=== PATIENT | male | born 1960 | race Caucasian/White ===

== ENCOUNTER 2017-05-11 07:44 | Day surgery (SDC) | payer MEDICARE ==
[~2017-05-11 07:44] MED LIST: BESIFLOXACIN HCL 0.6% OPH SUSP 5 ML BOTTLE ONE; BUPIVACAINE HCL 0.75% INJ/PF (7.5 MG/1 ML) 10 ML SDV OS PRN; CHONDR SU A NA/HYALUR INTRAOC KIT (SURGICARE) ONE; EPINEPHRINE INJ/PF 1 MG/1 ML AMPULE ONE; FENTANYL CITRATE INJ/PF 100 MCG/2 ML AMPUL ONE; KETOROLAC TROMETHAMINE 0.45% 4 DROP/0.4 ML DROPERETTE ONE; KETOROLAC TROMETHAMINE 0.45% 4 DROP/0.4 ML DROPERETTE OS PRN; LIDOCAINE 4% INJ/PF (40 MG/ML) 5 ML AMPUL OS PRN; MIDAZOLAM 2 MG/2 ML INJ ONE; TETRACAINE HCL 0.5% OPH SOLN 0.6 ML DROPERETTE ONE
[2017-05-11] MEDS: CYCLOPENTOLATE 0.2%/PHENYLEPHRINE 1% OPH SOLN 2 ML OS PRN ×3 (08:13→08:33)
[2017-05-11] MEDS: BESIFLOXACIN HCL 0.6% OPH SUSP 5 ML BOTTLE OS PRN ×4 (08:13→09:15)
[2017-05-11] MEDS: TROPICAMIDE 1% OPH SOLN 3 ML OS PRN ×3 (08:13→08:33)
[2017-05-11] MEDS: TETRACAINE HCL 0.5% OPH SOLN 0.6 ML DROPERETTE OS PRN ×2 (08:14→08:33)
[2017-05-11] MEDS ORDERED: EPINEPHRINE INJ/PF 1 MG/1 ML AMPULE ONE (08:37)
[2017-05-11] MEDS ORDERED: FENTANYL CITRATE INJ/PF 100 MCG/2 ML AMPUL ONE (08:49)
[2017-05-11] MEDS ORDERED: MIDAZOLAM 2 MG/2 ML INJ ONE ×2 (08:49→09:22)
[2017-05-11] MEDS ORDERED: CYCLOPENTOLATE 0.2%/PHENYLEPHRINE 1% OPH SOLN 2 ML OS PRN (09:00)
[2017-05-11] MEDS ORDERED: LIDOCAINE 4% INJ/PF (40 MG/ML) 5 ML AMPUL OS PRN (09:00)
[2017-05-11] MEDS ORDERED: TROPICAMIDE 1% OPH SOLN 3 ML OS PRN (09:00)
[2017-05-11] MEDS ORDERED: BUPIVACAINE HCL 0.75% INJ/PF (7.5 MG/1 ML) 10 ML SDV OS PRN (09:00)
--- NOTE | 2017-05-11 09:57 | [facility] DISCHARGE SUMMARY E ---
[facility] Discharge Summary NAME: ETHAN HOFF AGE: 56Y ADMITTED: 05/11/2017 DISCHARGED: 05/11/2017 PREOPERATIVE DIAGNOSIS: Cataract, left eye. POSTOPERATIVE DIAGNOSIS: Cataract, left eye. HOSPITAL COURSE: The patient is a 56-year-old gentleman who underwent uneventful cataract extraction with intraocular lens implant, left eye, on 05/11/2017. He will be discharged to home. He was instructed to resume preoperative medications, take Tylenol as needed for discomfort, to keep his eye shielded, to use Besivance, Durezol, and Ilevro at 3 p.m. and 8 p.m., and to followup in my office in 1 day. DICTATING PHYSICIAN: ARLETH MURRELL M.D. [id number] PHY#: [id number] ID: [id number] JOB#: [id number] ACCT: [id number] cc:ARLETH MURRELL M.D. >
--- NOTE | 2017-05-11 09:58 | [facility] OPERATIVE REPORT E ---
[facility] Operative Report NAME: ETHAN HOFF AGE: 56Y DATE OF SURGERY: 05/11/2017 ROOM: PREOPERATIVE DIAGNOSIS: Cataract, left eye. POSTOPERATIVE DIAGNOSIS: Cataract, left eye. PROCEDURE PERFORMED: Phacoemulsification with posterior chamber intraocular lens, left eye. SURGEON: Shana Murrell MD ANESTHESIA: Topical with MAC. INDICATIONS FOR SURGERY: Difficulty reading small print and road signs. Best corrected visual acuity 20/50. PROCEDURE: The patient was brought to the operating room and placed on the operative table. Following tetracaine drops, topical anesthesia was administered. This consisted of instrument wipe pledgets soaked in a solution of 4% Xylocaine mixed with 0.75% Marcaine in a 1:2 ratio. A 2 x 1 cm pledget was placed in the superior fornix. A 1 x 1 cm pledget was placed in the inferior fornix. The eye was patched shut for 5 minutes. The patch was removed. The eye was sterilely prepped and draped in the usual manner. Lid speculum was placed in the eye. The pledgets were removed. 4-0 black silk sutures were placed around the superior and the inferior rectus muscles to be used as traction. A conjunctival peritomy was made at the 10 o'clock position. Hemostasis was obtained with bipolar cautery. A posterior limbal groove was created using a crescent knife and dissected anteriorly towards the cornea. A sharp point blade was used to create a paracentesis site at the 2 o'clock position. A 2.4 mm keratome was used to enter the anterior chamber through the groove. Viscoelastic was injected into the anterior chamber. An anterior capsulotomy was performed using Utrata forceps in a capsulorrhexis fashion. Hydrodissection and hydrodelineation were performed. Phacoemulsification was performed in haiwbu-ret-pyptxin technique. Total phaco time 7.6 CDE. Following this, the I/A unit was used to remove residual cortex. Viscoelastic was injected into the capsular bag. Intraocular lens model SN60WF, 19.5 diopters, serial number [id number] was placed in the capsular bag. The I/A unit was used to remove residual viscoelastic. The wound was seen to be watertight under high and low pressure, and no sutures were placed. The intraocular lens was well centered. The pressure was adjusted in the eye to normal pressure. The 4-0 black silk sutures and lid speculum were removed. The eye was shielded after Besivance drops were placed. The patient tolerated the procedure well and was sent to the recovery room in good condition. DICTATING PHYSICIAN: SHANA MURRELL M.D. [id number] PHY#: [id number] ID: [id number] JOB#: [id number] ACCT: [id number] cc:SHANA MURRELL M.D. >
== END 2017-05-11 09:53 | disposition home or self-care (01) ==
LOC: SC 07:44
PROVIDERS: ATTEND Ophthalmology
PROC: 08RK3JZ Replacement of Left Lens with Synthetic Substitute, Percutaneous Approach (ICD-10-PCS; principal; 2017-05-11 09:00)
DX: H25.812 Combined forms of age-related cataract, left eye (principal); K74.60 Unspecified cirrhosis of liver; F17.210 Nicotine dependence, cigarettes, uncomplicated
CPT/HCPCS: 66984; V2632; J2250; J3490; A9270 ×2; J0171; J3010; 142

== ENCOUNTER → 2018-03-25 | Outpatient (CLI) | payer MEDICARE ==
--- NOTE | 2018-03-25 09:24 | RADIOLOGY REPORT (SQ) ---
EXAM DESCRIPTION: U/S ABDOMEN LIMITED W/O DOP COMPLETED DATE/TIME: 03/25/2018 8:41 am REASON FOR STUDY: K74.60 UNSPECIFIED CIRRHOSIS OF LIVER K74.60 UNSPECIFIED CIRRHOSIS OF LIVER Z87.8 91 PERSONAL HISTORY OF NICOTINE DEPENDENCE COMPARISON: None. TECHNIQUE: Dynamic and static grayscale images acquired of the abdomen and recorded on PACS. Additio nal selected color Doppler and spectral images recorded. LIMITATIONS: Study is limited somewhat due to overlying bowel gas. FINDINGS: PANCREAS: No masses. No peripancreatic edema or fluid collections. LIVER: Echotexture is coarse with increased echogenicity consistent with fatty infiltration. LIVER VASCULATURE: Normal directional flow of the main portal vein. GALLBLADDER: No stones. Normal wall thickness. No pericholecystic fluid. ULTRASOUND-DETECTED SANDHU'S SIGN: Negative. INTRAHEPATIC DUCTS AND COMMON DUCT: CBD and intrahepatic ducts normal caliber. No filling defects. INFERIOR VENA CAVA: Normal flow. AORTA: No aneurysm. RIGHT KIDNEY: 11.3 cm in length. Normal echogenicity. No solid or suspicious masses. No hydron ephrosis. No calcifications. PERITONEAL AND RIGHT PLEURAL SPACE: No ascites or effusions. OTHER: No other significant finding. IMPRESSION: FATTY INFILTRATION OF THE LIVER. OTHERWISE NORMAL RIGHT UPPER QUADRANT ULTRASOUND. TECHNICAL DOCUMENTATION: JOB ID: [id number] [employer]- All Rights Reserved Reading location - IP/workstation name: [email or web address]
--- NOTE | 2018-03-25 09:30 | RADIOLOGY REPORT (SQ) ---
EXAM DESCRIPTION: CT LUNG CANCER SCREENING COMPLETED DATE/TIME: 03/25/2018 8:45 am REASON FOR STUDY: Z87.891 PERSONAL HISTORY OF NICOTINE DEPENDENCE K74.60 UNSPECIFIED CIRRHOSIS OF Randy SCOTT Z87.891 PERSONAL HISTORY OF NICOTINE DEPENDENCE Has the patient had a Chest CT scan within the past year? Was the patient offered tobacco cessation counseling? Was the patient engaged in shared decision making for this test? Does the patient have signs or symptoms of Lung Cancer? Is the patient a smoker? How many packs per year? How many years since quitting smoking? Patients age: COMPARISON: None. TECHNIQUE: Low Dose CT scan performed of the chest without intravenous contrast for purposes of scre ening for lung cancer. Images reviewed with lung, soft tissue and bone windows. Reconstructed coron al and sagittal MPR images reviewed. All images stored on PACS. All CT scanners at this facility use dose modulation, iterative reconstruction, and/or weight based d osing when appropriate to reduce radiation dose to as low as reasonably achievable (ALARA). [facility]: Dose Right [facility]: CareDose [facility]: Dose Right [facility]: Teradose 4D [facility]: Eko [place] RADIATION DOSE: CT Rad equipment meets quality standard of care and radiation dose reduction techniq ues were employed. CTDIvol: 2.1 mGy. DLP: 88 mGy-cm. mGy. LIMITATIONS: No technical limitations. FINDINGS: LUNGS AND PLEURA: No masses or nodules. Calcified granuloma is identified on the right. No pleural effusions or calcifications. No pneumothorax. No scarring or interstitial changes. HILAR AND MEDIASTINAL STRUCTURES: Mediastinal calcifications in right hilar calcifications are identi fied consistent with old granulomatous disease. HEART AND VASCULAR STRUCTURES: No aortic aneurysm. No pericardial effusion. No cardiac devices. CORONARY ARTERY CALCIFICATIONS: Minimal coronary artery calcifications are identified. UPPER ABDOMEN: No significant findings. THYROID AND OTHER SOFT TISSUES: No masses. No adenopathy. BONY STRUCTURES: No significant finding. OTHER: No other significant findings. IMPRESSION: NO SIGNIFICANT FINDING ON NON-CONTRASTED CHEST CT. NO OTHER CLINICALLY SIGNIFICANT/POTENTIALLY CLINICALLY SIGNIFICANT FINDINGS LUNGRADS: LUNGRADS: 1 NEGATIVE. NO NODULES, OR DEFINITELY BENIGN NODULES MODIFIER: NONE RECOMMENDATION: Continue annual screening with LDCT in 12 months. COMMENT: CRITERIA: No lung nodules. Nodules with specific calcifications: Complete, central, popcorn, concentric rings and fat containin g nodules. TECHNICAL DOCUMENTATION: JOB ID: [id number] Quality ID # [id number]: Final reports with documentation of one or more dose reduction techniques (e.g., Au tomated exposure control, adjustment of the mA and/or kV according to patient size, use of iterative reconstruction technique) 2010 [facility] Rad[facility] Reading location - IP/workstation name: [email or web address]
== END ==
LOC: RAD 08:11
PROVIDERS: ATTEND Nurse Practitioner Acute Care
DX: Z12.2 Encounter for screening for malignant neoplasm of respiratory organs (principal); Z87.891 Personal history of nicotine dependence; K74.60 Unspecified cirrhosis of liver
CPT/HCPCS: 76705; G0297